=== PATIENT | female | born 1970 | race Hispanic/Latino ===

== ENCOUNTER → 2019-08-29 | Outpatient (CLI) | payer OTHER ==
--- NOTE | 2019-08-31 16:35 | MAM ---
EXAM DESCRIPTION: 3D Screening BILATERAL : Digital Mammography. CLINICAL HISTORY: 49 years Female ANNUAL SCREENING . No complaints. No personal or family history of breast cancer. Menarche age 12. Childbirth. Postmenopausal. No HRT. Lifetime risk of developing breast cancer (Tyrer-Cuzick model)(%): 6.7. COMPARISON: Baseline study at this facility.. TECHNIQUE: Bilateral CC and MLO projection full-field images, digital tomosynthesis mammographic technique. Bilateral digital 2-D full-field MLO images. CAD not available for tomosynthesis or 2-D images. FINDINGS: The breast parenchymal density pattern is: Heterogeneously dense breast tissue, which may obscure small masses. No skin thickening or nipple retraction. Left axillary lymph node. Bilateral solitary microcalcifications in the parenchyma and also bilateral skin calcifications. Focal asymmetry versus small mass densities at the 1:30-2:00 position, 6 cm from the nipple. No new focal, stellate mass or density, focal asymmetry , and no suspicious microcalcifications right breast. IMPRESSION: BI-RADS CATEGORY: 0 - INCOMPLETE- Need additional imaging evaluation. FOLLOW-UP: Recall for additional imaging: Left breast full-field LM tomosynthesis and 2-D images. Targeted left breast ultrasound. Region of interest.. Written communication concerning the IMPRESSION and Follow-up, will be mailed to the patient and referring health care provider. Electronically signed by: Colin Angel MD 08/31/2019 4:33 PM SENIOR HEALTH PHYSICS TECHNICIAN
== END ==
LOC: MAMMO 12:05
PROVIDERS: ATTEND Family Medicine
DX: Z12.31 Encounter for screening mammogram for malignant neoplasm of breast (principal)

== ENCOUNTER → 2019-09-20 | Outpatient (CLI) | payer OTHER ==
--- NOTE | 2019-09-20 17:21 | MAM ---
EXAM DESCRIPTION: Diagnostic Mammo,Left (accession [id number]), Breast,Left (accession [id number]): Ultrasound CLINICAL HISTORY: 49 yearsFemaleLEFT BREAST MASS focal asymmetry versus mass density left breast. No personal or family history of breast cancer. Menarche age 12. Childbirth. Postmenopausal. No HRT. Lifetime risk of developing breast cancer (Tyrer-Cuzick model)(%): 6.7. COMPARISON: Bilateral screening digital breast tomosynthesis 29 August 2019. TECHNIQUE: Left breast LM projection full-field images, digital tomosynthesis technique. Bilateral 2-D digital full-field images. CC and LM projections. CAD not available. . Transcutaneous scanning of the left breast utilizing knight-scale and Doppler modes. Scanning performed by the water meter installer ; observation by Dr. Angel. Patient Wolof-speaking. Family member served as Arabic-reconciliation manager during consultation after the examination's. FINDINGS: The breast parenchymal density pattern is: Heterogeneously dense breast tissue, which may obscure small masses. No skin thickening or nipple retraction nodular densities appear stable since the screening study with adjacent microcalcifications. Also skin calcifications. No abnormal mass density. Ultrasound: Left breast laterally middle third. Scanning 6 cm from the nipple at 3:00. Hypoechoic circumscribed nodule with eccentric echogenic segment consistent with a lymph node. 3.7 x 3.4 mm. Oval-shaped anechoic thin-walled circumscribed structure wider than tall orientation and nonvascular with acoustic enhancement posterior in the nearby soft tissues. Cyst measures 4.5 x 4.2 cm. IMPRESSION: Benign exam. Left breast cyst and left breast lymph node. BIRAD CATEGORY: 2 BENIGN FINDINGS. RECOMMENDATIONS: FOLLOW UP: Return to routine digital bilateral mammographic screening, one year interval from August 2019. Written communication explaining the IMPRESSION and follow-up, will be mailed to the patient and referring health care provider. The FINDINGS and the FOLLOW-UP plan were reviewed in person with the patient and Arabic ore smelter after the examination. According to the [employer], yearly mammograms are recommended starting at age 40 and continuing as long as a woman is in good health. Any breast change noted on a breast self-exam should be reported promptly to the patient's healthcare provider. Breast MRI is recommended for women with an approximately 20-25% or greater lifetime risk of breast cancer, including women with a strong family history of breast or ovarian cancer and women who have been treated for Hodgkin's disease. A negative mammographic report should not delay tissue diagnosis in patients with significant clinical history or physical findings. Extremely dense breast tissue limits the sensitivity of digital mammography. Electronically signed by: Colin Angel MD 09/20/2019 5:20 PM [facility]
== END ==
LOC: MAMMO 10:59
PROVIDERS: ATTEND Family Medicine
DX: N60.02 Solitary cyst of left breast (principal)